=== PATIENT | female | born 1945 | race Caucasian/White ===

== ENCOUNTER 2016-04-21 12:52 | Outpatient (CLI) | payer MEDICARE, OTHER | END 2016-04-21 12:53 | disposition home or self-care (01) | DX: Z01.818 Encounter for other preprocedural examination (principal); Z01.812 Encounter for preprocedural laboratory examination; N39.0 Urinary tract infection, site not specified; R73.9 Hyperglycemia, unspecified ==

== ENCOUNTER 2016-10-01 08:59 | Outpatient (CLI) | payer MEDICARE, OTHER ==
[2016-10-01 11:00] LABS: BASOPHILS # (AUTO) 0.1 10^3/uL (0.0-0.1); BASOPHILS % (AUTO) 1.2 %; EOSINOPHILS # (AUTO) 0.2 10^3/uL (0.0-0.7); HCT - HEMATOCRIT 41.5 % (37.0-47.0); LYMPHOCYTES # (AUTO) 1.6 10^3/uL (1.5-3.5); LYMPHOCYTES % (AUTO) 36.8 %; MEAN CORPUSCULAR HEMOGLOBIN 28.1 pg (27.0-31.0); MEAN CORPUSCULAR HGB CONC 33.7 g/dL (32.0-36.0); MEAN CORPUSCULAR VOLUME 83.4 fL (81.0-99.0); MEAN PLATELET VOLUME 7.6 fL (7.9-10.8); MONOCYTES # (AUTO) 0.3 10^3/uL (0.0-1.0); MONOCYTES % (AUTO) 7.3 %; NEUTROPHILS # (AUTO) 2.1 10^3/uL (1.5-6.6); NEUTROPHILS % (AUTO) 49.7 %; NUCLEATED RED BLOOD CELLS AUTO 0.1 /100WBC; RED BLOOD COUNT 4.98 10^6/uL (4.20-5.40); RED CELL DISTRIBUTION WIDTH 15.6 % (12.0-15.0); UNCORRECTED WHITE BLOOD COUNT 4.3 x10^3/uL; WHITE BLOOD COUNT 4.3 x10^3/uL (4.8-10.8)
[2016-10-01 11:23] LABS: ALBUMIN/GLOBULIN RATIO 1.4 (1.0-2.2); BILIRUBIN,TOTAL 0.7 mg/dL (0.2-1.0); BUN - BLOOD UREA NITROGEN 21 mg/dL (6-20); CALCIUM 9.7 mg/dL (8.5-10.3); CARBON DIOXIDE - CO2 29 mmol/L (21-32); CHLORIDE 100 mmol/L (101-111); CHOL/HDL RATIO 3.7 (<4.4); CHOLESTEROL 210 mg/dL; GFR - MDRD 55 (>89); GLUCOSE 101 mg/dL (70-100); HDL CHOLESTEROL 57 mg/dL; LDL/HDL RATIO 2.2 (<4.4); POTASSIUM 3.8 mmol/L (3.5-5.0); SODIUM 137 mmol/L (135-145); TRIGLYCERIDES 146 mg/dL; VLDL CHOLESTEROL 29 mg/dL
== END 2016-10-01 09:00 | disposition home or self-care (01) ==
LOC: LAB.F 08:59
PROVIDERS: ATTEND Family Medicine
DX: I10 Essential (primary) hypertension (principal); E78.5 Hyperlipidemia, unspecified
CPT/HCPCS: 36415; 80053; 80061; 85025

== ENCOUNTER 2017-03-11 11:53 | Outpatient (CLI) | payer MEDICARE, OTHER ==
--- NOTE | 2017-03-12 17:36 | Mammography Report ---
DIGITAL SCREENING MAMMOGRAM: 03/11/2017 CLINICAL INDICATION: A 72-year-old with family history of breast cancer, history of benign biopsies for screening. COMPARISON: 12/2015, 11/2014, 10/2013, 09/2012, 08/2011, 06/2010. TECHNIQUE: Routine CC and MLO projections were obtained of the breasts. The breasts demonstrate fatty replacement bilaterally. Coarse and punctate, typically benign calcifi cations are present. No suspicious masses, clustered microcalcifications, or regions of architectura l distortion are identified. IMPRESSION: BENIGN FINDINGS. RECOMMENDATION: ROUTINE ANNUAL SCREENING UNLESS OTHERWISE CLINICALLY INDICATED. BIRADS CATEGORY: 2, BENIGN FINDINGS. STANDARD QUALIFYING STATEMENTS 1. This examination was reviewed with the aid of Computed-Aided Detection (CAD). 2. A negative or benign imaging report should not delay biopsy if clinically suspicious findings are present. Consider surgical consultation if warranted. More than 5% of cancers are not identified b y imaging. 3. Dense breasts may obscure an underlying neoplasm. JOB #: [id number] EXT JOB #:[id number]
== END 2017-03-11 11:54 | disposition home or self-care (01) ==
LOC: DI 11:53
PROVIDERS: ATTEND Family Medicine
DX: Z12.31 Encounter for screening mammogram for malignant neoplasm of breast (principal); Z80.3 Family history of malignant neoplasm of breast
CPT/HCPCS: 77067

== ENCOUNTER 2017-05-03 07:12 | Outpatient (CLI) | payer MEDICARE, OTHER ==
[2017-05-03 12:15] LABS: BASOPHILS % (AUTO) 0.7 %; EOSINOPHILS # (AUTO) 0.2 10^3/uL (0.0-0.7); EOSINOPHILS % (AUTO) 4.3 %; HGB - HEMOGLOBIN 14.6 g/dL (12.0-16.0); LYMPHOCYTES # (AUTO) 2.1 10^3/uL (1.5-3.5); LYMPHOCYTES % (AUTO) 41.1 %; MEAN CORPUSCULAR HEMOGLOBIN 28.9 pg (27.0-31.0); MEAN CORPUSCULAR HGB CONC 33.9 g/dL (32.0-36.0); MEAN CORPUSCULAR VOLUME 85.3 fL (81.0-99.0); MEAN PLATELET VOLUME 7.9 fL (7.9-10.8); MONOCYTES # (AUTO) 0.4 10^3/uL (0.0-1.0); MONOCYTES % (AUTO) 6.9 %; NEUTROPHILS # (AUTO) 2.4 10^3/uL (1.5-6.6); PLT - PLATELET COUNT 239 10^3/uL (130-450); RED BLOOD COUNT 5.04 10^6/uL (4.20-5.40); WHITE BLOOD COUNT 5.1 x10^3/uL (4.8-10.8)
[2017-05-03 12:37] LABS: ALBUMIN 4.1 g/dL (3.2-5.5); ALBUMIN/GLOBULIN RATIO 1.4 (1.0-2.2); ALKALINE PHOSPHATASE 66 IU/L (42-121); ALT ALANINE AMINOTRANSFERASE 19 IU/L (10-60); AST ASPARTATE AMINOTRANSFERASE 23 IU/L (10-42); BILIRUBIN,TOTAL 0.5 mg/dL (0.2-1.0); BUN - BLOOD UREA NITROGEN 17 mg/dL (6-20); CALCIUM 9.2 mg/dL (8.5-10.3); CARBON DIOXIDE - CO2 28 mmol/L (21-32); CHLORIDE 98 mmol/L (101-111); CHOL/HDL RATIO 3.9 (<4.4); CHOLESTEROL 236 mg/dL; GFR - MDRD 54 (>89); GLUCOSE 100 mg/dL (70-100); HDL CHOLESTEROL 61 mg/dL; LDL CHOLESTEROL,CALCULATED 135 mg/dL; LDL/HDL RATIO 2.2 (<4.4); SODIUM 135 mmol/L (135-145); TOTAL PROTEIN 7.1 g/dL (6.7-8.2); VLDL CHOLESTEROL 40 mg/dL
== END 2017-05-03 07:13 | disposition home or self-care (01) ==
LOC: LAB.F 07:12
PROVIDERS: ATTEND Physician Assistant Medical
DX: I10 Essential (primary) hypertension (principal); E78.5 Hyperlipidemia, unspecified; Z51.81 Encounter for therapeutic drug level monitoring
CPT/HCPCS: 36415; 80053; 80061; 83721; 84443; 85025

== ENCOUNTER 2018-02-14 23:26 | Outpatient (CLI) | payer MEDICARE, OTHER | END 2018-02-14 23:27 | disposition critical access hospital (66) | LOC: EMS 23:26 | PROVIDERS: ATTEND Surgery | DX: K92.1 Melena (principal) | CPT/HCPCS: A0425; A0427 ==

== ENCOUNTER 2018-02-14 23:51 | Observation (INO) | payer MEDICARE, OTHER ==
[2018-02-15] MEDS ORDERED: SODIUM CHLORIDE 0.9% 1,000 ML IV ONE (00:03)
--- NOTE | 2018-02-15 00:06 | ED Physician Documentation ---
History of Present Illness - Stated complaint Stated Complaint: GI BLEED - Chief complaint Chief Complaint: Abd Pain - Additonal information Additional information: hx from pt 73 female no blood thinners no prior abd surgery last colonoscopy 2012 was reportedly normal no bad food no travel she did take an aleve yesterday afternoon and her daily baby asa no EtOH earlier today had an episode of BRBPR then tonight numerous episodes of loose black and bloody stools no abd pain no [facility] called and pt was very orthostatic - with standing HR was 108 and BP was 82/66 Review of Systems Constitutional: denies: Fever, Chills Cardiac: denies: Chest pain / pressure Respiratory: denies: Dyspnea GI: reports: Bloody / black stool. denies: Abdominal Pain, Nausea, Vomiting Neurologic: denies: Generalized weakness Endocrine: denies: Easy bruising / bleeding Immunocompromised: denies: Immunocompromised PD PAST MEDICAL HISTORY - Past Medical History Cardiovascular: Hypertension Respiratory: None Endocrine/Autoimmune: None GI: None SCOOP FILLER: None : None HEENT: None Psych: None Musculoskeletal: None Derm: None - Past Surgical History Past Surgical History: Yes General: Colonoscopy Ortho: Knee replacement - Present Medications Home Medications: Ambulatory Orders Medication Instructions Recorded Confirmed Hydrochlorothiazide 25 mg PO DAILY 06/09/15 12/04/15 Metoprolol Succinate [Toprol Xl] 100 mg PO DAILY 06/09/15 12/04/15 Aspirin 162 mg PO DAILY 02/15/18 Calcium Carbonate/Vitamin D3 1 each PO 02/15/18 [Calcium 600 + Vit D 400 Tablet] Dozylamine Succinate 02/15/18 Potassium Chloride 20 meq PO DAILY 02/15/18 Vit C/Ascorb Sod/Multivit-Min 02/15/18 [Emergen-C 500 mg Chewable Tab] - Allergies Allergies/Adverse Reactions: Allergies Allergy/AdvReac Type Severity Reaction Status Date / Time No Known Drug Allergies Allergy Verified 02/14/18 23:56 - Social History Does the pt smoke?: No Smoking Status: Never smoker Does the pt drink ETOH?: Yes Does the pt have substance abuse?: No - Immunizations Immunizations are current?: Yes - POLST Patient has POLST: Yes PD ED PE NORMAL - Vitals Vital signs reviewed: Yes - Neck Neck: Supple, no meningeal sign - Cardiac Cardiac: RRR - Respiratory Respiratory: No respiratory distress - Abdomen Abdomen: Soft, Non tender - Rectal Rectal: Other (small flaccid hemorrhoid, no fissure, no mass on YOGESH, grossly bloody stool in rectal vault, pt had soaked through her underwear en route as well) - Derm Derm: Other (little pale) - Neuro Neuro: Alert and oriented X 3 Results - Vitals Vitals: Vital Signs - 24 hr 02/14/18 02/15/18 02/15/18 23:52 00:45 02:09 Temperature 36.3 C L Heart Rate 75 66 71 Respiratory 18 16 16 Rate Blood Pressure 149/86 H 121/57 L 127/61 O2 Saturation 98 96 96 Oxygen O2 Source Room air - Labs Labs: Laboratory Tests 02/15/18 02/15/18 02/15/18 00:20 00:20 00:20 WBC 7.8 RBC 4.02 L Hgb 12.0 Hct 34.5 L MCV 85.8 MCH 29.8 MCHC 34.8 RDW 14.4 Plt Count 226 MPV 7.2 L Neut # (Auto) 5.0 Lymph # (Auto) 2.2 [place] # (Auto) 0.4 Eos # (Auto) 0.2 Baso # (Auto) 0.0 Absolute Nucleated RBC 0.00 Nucleated RBC % 0.0 PT 14.3 H INR 1.3 H APTT 26.3 Sodium 136 Potassium 3.2 L Chloride 100 L Carbon Dioxide 26 Anion Gap 10.0 BUN 29 H Creatinine 0.8 Estimated GFR (MDRD) 70 L Glucose 131 H Calcium 8.7 Total Bilirubin 0.4 AST 19 ALT 16 Alkaline Phosphatase 53 Total Protein 6.2 L Albumin 3.7 Globulin 2.5 Albumin/Globulin Ratio 1.5 Lipase 42 Blood Type Antibody Screen 02/15/18 00:20 WBC RBC Hgb Hct MCV MCH MCHC RDW Plt Count MPV Neut # (Auto) Lymph # (Auto) [place] # (Auto) Eos # (Auto) Baso # (Auto) Absolute Nucleated RBC Nucleated RBC % PT INR APTT Sodium Potassium Chloride Carbon Dioxide Anion Gap BUN Creatinine Estimated GFR (MDRD) Glucose Calcium Total Bilirubin AST ALT Alkaline Phosphatase Total Protein Albumin Globulin Albumin/Globulin Ratio Lipase Blood Type A POSITIVE Antibody Screen NEGATIVE - Rads (name of study) CTAP with IV con Radiology: See rad report (no acute, diverticulosis) PD MEDICAL DECISION MAKING - ED course ED course: 1st H/H OK but pt very othostatic and with ongoing bleeding (bled through her clothes en route) may be upper as she took an aleve CT does not show any tumor or colitis d/w hospitalist Dr Zaldivar at 330 and he will admit pt for further eval and management for now he suggests observation status Departure - Departure Disposition: ED Place in Observation Clinical Impression: GI bleed Qualifiers: GI bleed type/associated pathology: unspecified gastrointestinal hemorrhage type Qualified Code(s): K92.2 - Gastrointestinal hemorrhage, unspecified Condition: Fair
[2018-02-15 00:30] LABS: BASOPHILS % (AUTO) 0.5 %; EOSINOPHILS # (AUTO) 0.2 10^3/uL (0.0-0.7); EOSINOPHILS % (AUTO) 2.5 %; LYMPHOCYTES # (AUTO) 2.2 10^3/uL (1.5-3.5); LYMPHOCYTES % (AUTO) 27.7 %; MEAN CORPUSCULAR HEMOGLOBIN 29.8 pg (27.0-31.0); MEAN CORPUSCULAR HGB CONC 34.8 g/dL (32.0-36.0); MEAN CORPUSCULAR VOLUME 85.8 fL (81.0-99.0); MEAN PLATELET VOLUME 7.2 fL (7.9-10.8); MONOCYTES # (AUTO) 0.4 10^3/uL (0.0-1.0); MONOCYTES % (AUTO) 5.7 %; NEUTROPHILS % (AUTO) 63.6 %; PLT - PLATELET COUNT 226 10^3/uL (130-450); RED BLOOD COUNT 4.02 10^6/uL (4.20-5.40); RED CELL DISTRIBUTION WIDTH 14.4 % (12.0-15.0); WHITE BLOOD COUNT 7.8 x10^3/uL (4.8-10.8)
[2018-02-15 00:37] LABS: INR 1.3 (0.8-1.2); PT - PROTHROMBIN TIME 14.3 secs (9.9-12.6)
[2018-02-15 00:44] LABS: ALBUMIN 3.7 g/dL (3.2-5.5); ALBUMIN/GLOBULIN RATIO 1.5 (1.0-2.2); BILIRUBIN,TOTAL 0.4 mg/dL (0.2-1.0); CALCIUM 8.7 mg/dL (8.5-10.3); CREATININE 0.8 mg/dL (0.4-1.0); TOTAL PROTEIN 6.2 g/dL (6.7-8.2)
[2018-02-15] MEDS ORDERED: IOPAMIDOL-300 100 ML VIAL ONE (01:11)
[2018-02-15] MEDS ORDERED: IOPAMIDOL-300 100 ML VIAL IVP ONE (02:35)
--- NOTE | 2018-02-15 03:02 | CT Report ---
Reason: GIB Procedure Date: 02/15/2018 Accession Number: [id number] / [id number] Procedure: CT - Abdomen/Pelvis W/ CPT Code: FULL RESULT: EXAM: CT ABDOMEN AND PELVIS EXAM DATE: 02/15/2018 12:00 AM. CLINICAL HISTORY: GIB. COMPARISONS: ABDOMEN/PELVIS W/O 12/04/2015 1:22 PM. TECHNIQUE: Routine helical CT imaging was performed through the abdomen and pelvis. IV contrast: ISOVUE 300 100mL. Enteric contrast: No. Reconstructions: Coronal and sagittal. In accordance with CT protocol optimization, one or more of the following dose reduction techniques were utilized for this exam: automated exposure control, adjustment of mA and/or KV based on patient size, or use of iterative reconstructive technique. FINDINGS: Lung Bases: Unremarkable. Liver: Normal. No masses. Gallbladder/Bile Ducts: Unremarkable. Spleen: Normal. Pancreas: Normal. Adrenal Glands: Normal. Kidneys: Normal. No masses or hydronephrosis. Peritoneal Cavity/Bowel: Normal. No free fluid, free air or adenopathy. Diverticulosis, without CT evidence of diverticulitis. No masses or acute inflammatory process. The appendix is well visualized and normal. Pelvic Organs: Normal. The bladder and visualized pelvic organs are within normal limits. Vasculature: No aneurysms or other significant abnormality. Bones: No significant abnormality. Other: None. IMPRESSION: Diverticulosis. No evidence of colonic mass. RADIA
[2018-02-15] MEDS ORDERED: MORPHINE 2 MG/ML CARPUJECT IVP PRN (03:49)
[2018-02-15] MEDS ORDERED: ONDANSETRON 4 MG/2 ML VIAL IVP PRN (03:49)
[2018-02-15] MEDS ORDERED: PROCHLORPERAZINE 10 MG/2 ML VIAL IVP PRN (03:49)
[2018-02-15] MEDS ORDERED: SODIUM CHLORIDE 0.9% 500 ML IV ONE (03:49)
[2018-02-15] MEDS ORDERED: PROMETHAZINE 25 MG/1 ML VIAL IM PRN (03:49)
[2018-02-15] MEDS ORDERED: ACETAMINOPHEN 325 MG TABLET PO PRN (03:49)
--- NOTE | 2018-02-15 03:55 | HISTORY & PHYSICAL EXAMINATION ---
Chief Complaint - Chief Complaint Chief Complaint: Bright red blood per rectum History of Present Illness - Admitted From Admitted From:: Emergency Department - History Obtained From Records Reviewed: Yes History obtained from: Patient Exam Limitations: None - History of Present Illness HPI Comment/Other: Patient is a 73-year-old female with a past medical history significant for hypertension, hyperlipidemia and osteoarthritis status post bilateral knee and hip replacements who presents to the emergency department with a chief complaint of bright red stool per rectum. The patient states that she was in her normal state of health earlier this morning and had just returned from the gym. She states that she has left shoulder bursitis and her left shoulder was acting up. She states that she took a pill of Aleve to help to relieve the pain. She states shortly after she took the Aleve she had a bowel movement where she had some blood. She states that this is not the first time that she has had some blood in her stools as she has had hemorrhoids ever since she had her last child. She states that she gets mild blood in her stools off and on and that is been going on for years. She was not too concerned so she went on with the rest of her day as she normally does. She states that later in the evening she had the urge to go to the bathroom again and had another bowel movement this time there was a significant amount of blood more than she has ever had before. She states that she had 3 subsequent bowel movements all of which were bloody with mixed dark and bright red blood. She states that when she got up from the toilet she felt very lightheaded and became very concerned and therefore called 911. On arrival of the paramedics they found that she was orthostatic with blood pressure down in the 80s with standing and heart rate in the 100s. The patient denies any abdominal pain. She denies any hematemesis, chest pain or shortness of air. Patient denies any headaches, blurred vision, runny nose, sore throat, nasal congestion, difficulty swallowing, orthopnea, PND, increased lower extremity swelling, nausea, vomiting, constipation, joint swelling, back pain, neck stiffness, recent unintentional weight loss, changes in her appetite, polyuria, polydipsia, skin rash, skin changes, night sweats, or any focal neurologic deficits. On presentation to the emergency department the patient was afebrile, mildly hypertensive but otherwise had normal vital signs. The patient underwent routine lab work which showed a hemoglobin of 12.0, INR of 1.3 and mild hypokalemia with a potassium of 3.2. The patient had a glucose of 131 and a mildly elevated BUN of 29 otherwise remainder of her lab tests were within normal limits. The patient underwent a CT of her abdomen and pelvis which revealed diverticulosis but no evidence of a colonic mass. The patient had another bloody bowel movement in the emergency department and was found to have undergarment that was soaked with bright red blood. On rectal examination in the emergency room physician found that she had grossly positive blood in her rectum. The patient did have hemorrhoids on examination but this did not appear to be a hemorrhoidal bleed. The patient was placed in observation for a GI bleed and will need to be seen by the surgeon in the morning for likely colonoscopy and EGD. History - Past Medical History Cardiovascular: reports: Hypertension, High cholesterol Respiratory: reports: None Endocrine/Autoimmune: reports: None GI: reports: None PETROLEUM PRODUCTION ENGINEER: reports: None : reports: None HEENT: reports: None Psych: reports: None Musculoskeletal: reports: Osteoarthritis Derm: reports: None MRSA Hx?: No - Past Surgical History General: reports: Colonoscopy Ortho: reports: Hip replacement, Knee replacement - Family & Social History Family History: Mother: , Cancer (Mother of lung cancer, daughter has had both Hodgkin's lymphoma and breast cancer.), Father: , Other family: Cancer, Diabetes, Type 2 (Grandmother had diabetes) Living arrangement: At home Living Situation: With spouse/s.o. Social History Notes: The patient lives in [place], [place]. She has been living there for 17 years with her . She has 2 children. She and her have been for 51 years. The patient is originally from [facility] but lived in [place], [place] for most of her life. 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 She is still very active and goes to the gym 3 times a week. She is completely independent. She states that she smoked very little in college and has never been a heavy smoker. She denies any heavy alcohol use or any illicit drug use. - POLST Patient has POLST: Yes POLST Status: Full Code Meds/Allgy - Home Medications Home Medications: Ambulatory Orders Medication Instructions Recorded Confirmed Hydrochlorothiazide 25 mg PO DAILY 06/09/15 12/04/15 Metoprolol Succinate [Toprol Xl] 100 mg PO DAILY 06/09/15 12/04/15 Aspirin 162 mg PO DAILY 02/15/18 Calcium Carbonate/Vitamin D3 1 each PO 02/15/18 [Calcium 600 + Vit D 400 Tablet] Dozylamine Succinate 02/15/18 Potassium Chloride 20 meq PO DAILY 02/15/18 Vit C/Ascorb Sod/Multivit-Min 02/15/18 [Emergen-C 500 mg Chewable Tab] - Allergies Allergies/Adverse Reactions: Allergies Allergy/AdvReac Type Severity Reaction Status Date / Time No Known Drug Allergies Allergy Verified 02/14/18 23:56 Review of Systems - Other Findings Other Findings: A comprehensive review of systems was performed the pertinent positives and n egatives are stated above in the HPI and the remainder of the review of systems is negative. Prior Level of Functionality: Fully independent with all her activities of daily living Exam - Vital Signs Reviewed Vital Signs: Yes Vital Signs: Vital Signs x48h Temp Pulse Resp BP Pulse Ox 02/15/18 03:40 72 15 111/50 L 99 02/15/18 02:09 71 16 127/61 96 02/15/18 00:45 66 16 121/57 L 96 02/14/18 23:52 36.3 C L 75 18 149/86 H 98 - Physical Exam General Appearance: positive: No acute distress, Alert Eyes Bilateral: positive: Normal inspection, PERRL, EOMI, No lid inflammation, Conjunctivae nml, No scleral icterus ENT: positive: ENT inspection nml, Pharynx nml, Dry mucous membranes. negative: Purulent nasal drainage, Pharyngeal erythema, Oral lesions Neck: positive: Nml inspection, Thyroid nml, No JVD, Trachea midline. negative: Thyromegaly, Lymphadenopathy (R), Lymphadenopathy (L), Carotid bruit, Tracheal deviation Respiratory: positive: Chest non-tender, No respiratory distress, Breath sounds nml. negative: Wheezes, Rales, Rhonchi Cardiovascular: positive: Regular rate & rhythm, No murmur, No gallop Peripheral Pulses: positive: 2+ Abdomen: positive: Non-tender, No organomegaly, Nml bowel sounds, No distention. negative: Guarding, Rebound Rectal: positive: Bloody stool Back: positive: Nml inspection. negative: CVA tenderness (R), CVA tenderness (L) Skin: positive: Color nml, No rash, Warm, Dry. negative: Cyanosis, Diaphoresis, Pallor Extremities: positive: Non-tender, Full ROM, Nml appearance, No pedal edema Neurologic/Psychiatric: positive: Oriented x3, CN's nml (2-12), Motor nml, Sensation nml, Mood/affect nml Conclusion/Plan - Problem List (1) GI bleed Conclusion/Plan: Patient presented to the emergency department with bright red blood per rectum. The patient has had several episodes of black and bloody stools throughout the day today. She denies any abdominal pain, nausea or hematemesis. The patient has no history of GI bleeding. She had been using Aleve the last 2 days for arthritic pain. She takes a daily aspirin. The patient's bleeding likely appears to be a lower GI bleed however she could be having a brisk upper GI bleed with her history of NSAID and aspirin use. On presentation the patient's hemoglobin is stable but she does have orthostatic hypotension. The patient did have diverticulosis on CT of her abdomen but no mass. This appears likely to be a diverticular bleed. Plan: 2 large-bore IVs H&H every 6 Transfuse if hemoglobin less than 7 or acute drop in hemoglobin with ongoing bleeding or hemodynamic compromise IV fluids IV Protonix twice daily Surgery consult for EGD and colonoscopy Hold aspirin and all NSAIDs Qualifiers: GI bleed type/associated pathology: unspecified gastrointestinal hemorrhage t ype Qualified Code(s): K92.2 - Gastrointestinal hemorrhage, unspecified (2) Hypokalemia Conclusion/Plan: Patient has hypokalemia on presentation with a potassium of 3.2. The patient appears to be dry on examination likely due to her ongoing GI bleeding. The patient will be given potassium replacement and IV fluids while she is hospitalized. We will continue to monitor her potassium daily. (3) Hypertension Conclusion/Plan: Patient is a history of hypertension but presents to the emergency department with a GI bleed and has orthostatic hypotension. Given the patient's ongoing bleed and orthostatic hypotension we will hold all her antihypertensive medications. We will continue to monitor the patient's blood pressure and restart blood pressure medications if the patient does become hypertensive. Qualifiers: Hypertension type: essential hypertension Qualified Code(s): I10 - Essential (primary) hypertension (4) Osteoarthritis Conclusion/Plan: Patient is a history of arthritis and takes aspirin and Aleve at home for her arthritis. Given that she is having a GI bleed we will hold her aspirin and suggest she does not use Aleve. While she is hospitalized she will be given Ty lenol for pain. If the pain becomes excruciating she can get IV morphine but we will not use any aspirin or NSAIDs. Qualifiers: Osteoarthritis location: unspecified site (5) Hyperlipidemia Conclusion/Plan: The patient has a history of hyperlipidemia but recently has been taken off of her statin by her primary care physician. While she is hospitalized she will not be placed on a statin. Qualifiers: Hyperlipidemia type: unspecified Qualified Code(s): E78.5 - Hyperlipidemia, unspecified - Lab Results Lab results reviewed: Yes Fish Bones: 02/15/18 00:20 02/15/18 00:20 Other Lab Results: Laboratory Results WBC 7.8 x10^3/uL (4.8-10.8) 02/15/18 00:20 RBC 4.02 10^6/uL (4.20-5.40) L 02/15/18 00:20 Hgb 12.0 g/dL (12.0-16.0) 02/15/18 00:20 Hct 34.5 % (37.0-47.0) L 02/15/18 00:20 MCV 85.8 fL (81.0-99.0) 02/15/18 00:20 MCH 29.8 pg (27.0-31.0) 02/15/18 00:20 MCHC 34.8 g/dL (32.0-36.0) 02/15/18 00:20 RDW 14.4 % (12.0-15.0) 02/15/18 00:20 Plt Count 226 10^3/uL (130-450) 02/15/18 00:20 MPV 7.2 fL (7.9-10.8) L 02/15/18 00:20 Neut # (Auto) 5.0 10^3/uL (1.5-6.6) 02/15/18 00:20 Lymph # (Auto) 2.2 10^3/uL (1.5-3.5) 02/15/18 00:20 [place] # (Auto) 0.4 10^3/uL (0.0-1.0) 02/15/18 00:20 Eos # (Auto) 0.2 10^3/uL (0.0-0.7) 02/15/18 00:20 Baso # (Auto) 0.0 10^3/uL (0.0-0.1) 02/15/18 00:20 Absolute Nucleated RBC 0.00 x10^3/uL 02/15/18 00:20 Nucleated RBC % 0.0 /100WBC 02/15/18 00:20 PT 14.3 secs (9.9-12.6) H 02/15/18 00:20 INR 1.3 (0.8-1.2) H 02/15/18 00:20 APTT 26.3 secs (24.9-33.3) 02/15/18 00:20 Sodium 136 mmol/L (135-145) 02/15/18 00:20 Potassium 3.2 mmol/L (3.5-5.0) L 02/15/18 00:20 Chloride 100 mmol/L (101-111) L 02/15/18 00:20 Carbon Dioxide 26 mmol/L (21-32) 02/15/18 00:20 Anion Gap 10.0 (6-13) 02/15/18 00:20 BUN 29 mg/dL (6-20) H 02/15/18 00:20 Creatinine 0.8 mg/dL (0.4-1.0) 02/15/18 00:20 Estimated GFR (MDRD) 70 (>89) L 02/15/18 00:20 Glucose 131 mg/dL (70-100) H 02/15/18 00:20 Calcium 8.7 mg/dL (8.5-10.3) 02/15/18 00:20 Total Bilirubin 0.4 mg/dL (0.2-1.0) 02/15/18 00:20 AST 19 IU/L (10-42) 02/15/18 00:20 ALT 16 IU/L (10-60) 02/15/18 00:20 Alkaline Phosphatase 53 IU/L (42-121) 02/15/18 00:20 Total Protein 6.2 g/dL (6.7-8.2) L 02/15/18 00:20 Albumin 3.7 g/dL (3.2-5.5) 02/15/18 00:20 Globulin 2.5 g/dL (2.1-4.2) 02/15/18 00:20 Albumin/Globulin Ratio 1.5 (1.0-2.2) 02/15/18 00:20 Lipase 42 U/L (22-51) 02/15/18 00:20 Blood Type A POSITIVE 02/15/18 00:20 Antibody Screen NEGATIVE 02/15/18 00:20 - Diagnostic Imaging Results Diagnostic Imaging Results: positive: Final report reviewed Diagnostic Imaging Results Comments: CT abdomen/pelvis Impression: Diverticulosis. No evidence of colonic mass. Core Measures - Anticipated LOS I expect patient to be DC'd or transferred within 96 hours.: Yes - DVT/VTE - Prophylaxis VTE/DVT Device ordered at admit?: Yes
[2018-02-15] MEDS ORDERED: SODIUM CHLORIDE FLUSH 0.9% 10 ML SYRINGE ONE (05:18)
[2018-02-15 05:54] LABS: BASOPHILS % (AUTO) 0.8 %; EOSINOPHILS # (AUTO) 0.1 10^3/uL (0.0-0.7); EOSINOPHILS % (AUTO) 1.4 %; HGB - HEMOGLOBIN 10.9 g/dL (12.0-16.0); LYMPHOCYTES # (AUTO) 1.8 10^3/uL (1.5-3.5); LYMPHOCYTES % (AUTO) 29.4 %; MEAN CORPUSCULAR HEMOGLOBIN 29.5 pg (27.0-31.0); MEAN CORPUSCULAR HGB CONC 34.1 g/dL (32.0-36.0); MEAN CORPUSCULAR VOLUME 86.6 fL (81.0-99.0); MEAN PLATELET VOLUME 7.4 fL (7.9-10.8); MONOCYTES # (AUTO) 0.3 10^3/uL (0.0-1.0); MONOCYTES % (AUTO) 4.8 %; NEUTROPHILS # (AUTO) 3.9 10^3/uL (1.5-6.6); NEUTROPHILS % (AUTO) 63.6 %; PLT - PLATELET COUNT 219 10^3/uL (130-450); RED BLOOD COUNT 3.69 10^6/uL (4.20-5.40); RED CELL DISTRIBUTION WIDTH 14.3 % (12.0-15.0); WHITE BLOOD COUNT 6.2 x10^3/uL (4.8-10.8)
[2018-02-15] MEDS: NS W/20 MEQ KCL 1,000 ML IV SCH ×3 (05:55→17:41)
[2018-02-15] MEDS: SODIUM CHLORIDE FLUSH 0.9% 10 ML SYRINGE IVP PRN (05:55)
[2018-02-15 06:08] LABS: ALBUMIN 3.4 g/dL (3.2-5.5); ALBUMIN/GLOBULIN RATIO 1.5 (1.0-2.2); BILIRUBIN,TOTAL 0.6 mg/dL (0.2-1.0); CALCIUM 8.4 mg/dL (8.5-10.3); CREATININE 0.8 mg/dL (0.4-1.0); TOTAL PROTEIN 5.7 g/dL (6.7-8.2)
[2018-02-15] MEDS: POLYETHYLENE GLYCOL 3350 17 GM PACKET PO SCH (07:30)
[2018-02-15] MEDS: SODIUM CHLORIDE FLUSH 0.9% 10 ML SYRINGE IVP SCH ×2 (07:30→17:40)
[2018-02-15] MEDS: PANTOPRAZOLE 40 MG VIAL IVP SCH ×2 (09:27→21:18)
[2018-02-15] MEDS ORDERED: METOPROLOL SUCCINATE 50 MG TABLET PO SCH ×2 (10:00→13:00)
[2018-02-15 11:02] LABS: BASOPHILS % (AUTO) 0.8 %; EOSINOPHILS # (AUTO) 0.1 10^3/uL (0.0-0.7); EOSINOPHILS % (AUTO) 1.9 %; HGB - HEMOGLOBIN 10.7 g/dL (12.0-16.0); LYMPHOCYTES # (AUTO) 1.3 10^3/uL (1.5-3.5); MEAN CORPUSCULAR HEMOGLOBIN 29.5 pg (27.0-31.0); MEAN CORPUSCULAR HGB CONC 34.1 g/dL (32.0-36.0); MEAN CORPUSCULAR VOLUME 86.4 fL (81.0-99.0); MEAN PLATELET VOLUME 7.4 fL (7.9-10.8); MONOCYTES # (AUTO) 0.3 10^3/uL (0.0-1.0); MONOCYTES % (AUTO) 6.2 %; NEUTROPHILS # (AUTO) 3.1 10^3/uL (1.5-6.6); NEUTROPHILS % (AUTO) 64.1 %; PLT - PLATELET COUNT 212 10^3/uL (130-450); RED BLOOD COUNT 3.65 10^6/uL (4.20-5.40); RED CELL DISTRIBUTION WIDTH 14.8 % (12.0-15.0); WHITE BLOOD COUNT 4.8 x10^3/uL (4.8-10.8)
--- NOTE | 2018-02-15 16:44 | CONSULTATION NOTE ---
Referring Provider Name of Referring Provider:: Dr. Ramon Consult Date: 02/15/18 Chief Complaint - Chief Complaint Chief Complaint: rectal bleeding History of Present Illness - Admitted From Admitted From:: ER - History Obtained From Records Reviewed: yes History obtained from: pt, records Exam Limitations: none - History of Present Illness HPI Comment/Other: 73 yo female in her usual state of good health until yesterday afternoon when she noted the onset of passage of painless BRBPR. She had 3 or 4 episodes over the next several hours, the last of which was associated with dizziness and near syncope, prompting her to call 911 and come to the ER last night for evaluation. She had one more large BRBPR episode in the ER last night but none since admis becca. No prior similar episodes. No UGI sx such as heartburn, dysphagia, food intolerance, abd pain. No melena, wt changes. She has taken several doses of Aleve over the past few days for joint pain. She also takes daily aspirin therapy. No hx PUD. No alcohol, tobacco. She has a PH of colon polyps and her last colon in 2012 was negative by report. She reports a neg FH CRC although her father had colon polyps removed in the past. She has remained hemodynamically stable since admission. History - Past Medical History Cardiovascular: reports: Hypertension, High cholesterol Respiratory: reports: None Endocrine/Autoimmune: reports: None GI: reports: None WOMEN'S MINISTRY DIRECTOR: reports: None : reports: None HEENT: reports: None Psych: reports: None Musculoskeletal: reports: Osteoarthritis Derm: reports: None MRSA Hx?: No - Past Surgical History General: reports: Colonoscopy Ortho: reports: Hip replacement, Knee replacement - Family & Social History Family History: Mother: , Cancer (Mother of lung cancer, daughter has had both Hodgkin's lymphoma and breast cancer.), Father: , Other family: Cancer, Diabetes, Type 2 (Grandmother had diabetes) Family History Comment/Other: Neg for GI tumors Living arrangement: At home Living Situation: With spouse/s.o. Social History Notes: The patient lives in [place], [place]. She has been living there for 17 years with her . She has 2 children. She and her have been for 51 years. The patient is originally from [facility] but lived in [place], [place] for most of her life. 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 She is still very active and goes to the gym 3 times a week. She is completely independent. She states that she smoked very little in college and has never been a heavy smoker. She denies any heavy alcohol use or any illicit drug use. - Substance History Use: Uses substance without health or social issues: NONE Dependence: Experiences withdrawal or developed tolerances: NONE - POLST Patient has POLST: Yes POLST Status: Full Code Meds/Allgy - Home Medications Home Medications: Ambulatory Orders Medication Instructions Recorded Confirmed Hydrochlorothiazide 25 mg PO DAILY 06/09/15 02/15/18 Metoprolol Succinate [Toprol Xl] 100 mg PO DAILY 06/09/15 02/15/18 Ascorbic Acid 500 mg PO DAILY 02/15/18 02/15/18 Aspirin 162 mg PO DAILY 02/15/18 02/15/18 Calcium Carbonate/Vitamin D3 1 each PO DAILY 02/15/18 02/15/18 [Calcium 600 + Vit D 400 Tablet] Doxylamine Succinate [Wal-Duncan] 25 mg PO QPM 02/15/18 02/15/18 Latanoprost 0.005% Ophth Drops 1 drops EACHEYE QPM 02/15/18 02/15/18 [Xalatan Ophth Drops] Potassium Chloride 20 meq PO QPM 02/15/18 02/15/18 Timolol 0.25% Ophth Drops 1 drops LEFTEYE DAILY 02/15/18 02/15/18 [Timoptic 0.25% Ophth Drops] - Allergies Allergies/Adverse Reactions: Allergies Allergy/AdvReac Type Severity Reaction Status Date / Time No Known Drug Allergies Allergy Verified 02/14/18 23:56 Review of Systems - Constitutional Constitutional: denies: Fatigue, Fever, Chills, Poor appetite, Weight gain, Weight loss - Gastrointestinal Gastrointestinal: reports: Change in bowel habits, Rectal bleeding, Bloody stools. denies: Abdominal pain, Abdominal distention, Constipation, Diarrhea, Black stools, Nausea, Vomiting, Bile emesis, Henrique blood emesis, Coffee grounds emesis, Reflux/heartburn, Bloating - Hematologic/Lymphatic Hematologic/Lymphatic: denies: Bleeding tendencies - All Other Systems All Other Systems: reports: Reviewed and negative Exam - Vital Signs Reviewed Vital Signs: Yes Vital Signs: Vital Signs x48h Temp Pulse Resp BP Pulse Ox 02/15/18 16:30 36.5 C 74 18 127/61 97 02/15/18 13:00 74 117/98 H 02/15/18 11:25 36.5 C 69 16 150/70 H 99 - Physical Exam General Appearance: positive: No acute distress, Alert Eyes Bilateral: positive: Normal inspection, Conjunctivae nml, No scleral icterus ENT: positive: ENT inspection nml, Pharynx nml, No signs of dehydration Neck: positive: Nml inspection Respiratory: positive: Chest non-tender, No respiratory distress, Breath sounds nml. negative: Wheezes, Rales, Rhonchi Cardiovascular: positive: Regular rate & rhythm, No murmur, No gallop Abdomen: positive: Non-tender, No organomegaly, Nml bowel sounds, No distention. negative: Hepatomegaly, Splenomegaly, Mass Extremities: positive: No pedal edema. negative: Fareed's sign/cords Neurologic/Psychiatric: positive: Oriented x3 Conclusion/Plan - Diagnosis Diagnosis: GI bleed; most likely lower; ddx includes angiodysplasia, tics, CRC (doubt), colitis (doubt), UGI source (doubt) - Plan Plan: Agree with present management; bowel prep today for EGD/colon in AM tomorrow. PAR conf with pt. Thanks, - Lab Results Lab results reviewed: Yes Fish Bones: 02/15/18 10:50 02/15/18 05:44 - Diagnostic Imaging Results Diagnostic Imaging Results: positive: Final report reviewed, Read independently Diagnostic Imaging Results Comments: CT abd/pelvis showed colonic tics but no obvious source of gi bleeding.
[2018-02-15 16:57] LABS: EOSINOPHILS # (AUTO) 0.1 10^3/uL (0.0-0.7); EOSINOPHILS % (AUTO) 1.9 %; HGB - HEMOGLOBIN 10.4 g/dL (12.0-16.0); LYMPHOCYTES # (AUTO) 1.3 10^3/uL (1.5-3.5); MEAN CORPUSCULAR HGB CONC 33.1 g/dL (32.0-36.0); MEAN CORPUSCULAR VOLUME 87.7 fL (81.0-99.0); MEAN PLATELET VOLUME 7.5 fL (7.9-10.8); MONOCYTES # (AUTO) 0.3 10^3/uL (0.0-1.0); NEUTROPHILS # (AUTO) 2.7 10^3/uL (1.5-6.6); NEUTROPHILS % (AUTO) 61.1 %; PLT - PLATELET COUNT 216 10^3/uL (130-450); RED BLOOD COUNT 3.58 10^6/uL (4.20-5.40); RED CELL DISTRIBUTION WIDTH 14.6 % (12.0-15.0); WHITE BLOOD COUNT 4.4 x10^3/uL (4.8-10.8)
[2018-02-15] MEDS: SODIUM/POTASSIUM/MAG SULFATES 354 ML PREP KIT PO SCH (17:40)
[2018-02-15] MEDS ORDERED: LATANOPROST 0.005% OPHTH DROPS EACHEYE SCH (21:00)
[2018-02-15 22:59] LABS: EOSINOPHILS # (AUTO) 0.2 10^3/uL (0.0-0.7); EOSINOPHILS % (AUTO) 3.1 %; LYMPHOCYTES # (AUTO) 1.7 10^3/uL (1.5-3.5); LYMPHOCYTES % (AUTO) 34.9 %; MEAN CORPUSCULAR HEMOGLOBIN 29.3 pg (27.0-31.0); MEAN CORPUSCULAR HGB CONC 33.1 g/dL (32.0-36.0); MEAN CORPUSCULAR VOLUME 88.8 fL (81.0-99.0); MEAN PLATELET VOLUME 7.4 fL (7.9-10.8); MONOCYTES # (AUTO) 0.4 10^3/uL (0.0-1.0); MONOCYTES % (AUTO) 7.2 %; NEUTROPHILS # (AUTO) 2.7 10^3/uL (1.5-6.6); NEUTROPHILS % (AUTO) 53.8 %; PLT - PLATELET COUNT 193 10^3/uL (130-450); RED BLOOD COUNT 3.75 10^6/uL (4.20-5.40); RED CELL DISTRIBUTION WIDTH 14.7 % (12.0-15.0)
[2018-02-16] MEDS: NS W/20 MEQ KCL 1,000 ML IV SCH (02:46)
[2018-02-16] MEDS: SODIUM CHLORIDE FLUSH 0.9% 10 ML SYRINGE IVP SCH ×2 (02:47→09:24)
[2018-02-16] MEDS: SODIUM/POTASSIUM/MAG SULFATES 354 ML PREP KIT PO SCH (05:07)
[2018-02-16] MEDS: SODIUM CHLORIDE FLUSH 0.9% 10 ML SYRINGE IVP PRN ×3 (05:18→10:30)
[2018-02-16] MEDS ORDERED: LIDO GARGLE 30 ML BOTTLE ONE (07:12)
--- NOTE | 2018-02-16 07:21 | PROVIDER PROGRESS NOTE ---
Assessment/Plan - Problem List (1) GI bleed Qualifiers: GI bleed type/associated pathology: unspecified gastrointestinal hemorrhage type Qualified Code(s): K92.2 - Gastrointestinal hemorrhage, unspecified Assessment/Plan: Clinically resolving, most likely lower in nature. Plan: EGD/colon this am. - Current Meds Current Meds: Current Medications Generic Name Dose Route Start Last Admin Trade Name Freq PRN Reason Stop Dose Admin Potassium Chloride/Sodium Chloride 1,000 mls @ 100 mls/hr 02/15/18 04:00 02/16/18 02:46 Normal Saline 0.9% W/20 Meq Kcl IV 100 mls/hr .Q10H ELIUD Administration Latanoprost 1 drops 02/15/18 21:00 02/15/18 21:17 Xalatan Ophth Drops EACHEYE 1 drops QPM ELIUD Administration Ondansetron HCl 4 mg 02/15/18 03:49 02/16/18 05:17 Zofran Inj IVP 4 mg Q6HR PRN Administration Nausea / Vomiting Pantoprazole Sodium 40 mg 02/15/18 09:00 02/15/18 21:18 Protonix IVP 40 mg BID ELIUD Administration Polyethylene Glycol 17 gm 02/15/18 09:00 02/15/18 07:30 Miralax PO Not Given DAILY ELIUD Sodium Chloride 10 ml 02/15/18 03:49 02/16/18 05:18 Normal Saline Flush 0.9% IVP 10 ml PRN PRN Administration NEEDED PER PROVIDER ORDERS Sodium Chloride 10 ml 02/15/18 09:00 02/16/18 02:47 Normal Saline Flush 0.9% IVP Not Given 0100,0900,1700 ELIUD - Lab Result Lab results reviewed: Yes Fish Bone Diagrams: 02/15/18 22:48 02/15/18 05:44 - Additional Planning Condition/Complexity: Improved My Orders: My Active Orders 02/16/18 00:01 NPO except Meds at Midnight [DIET] Plan Discussed with:: Patient Time Spent: 15-30 minutes Subjective - Subjective Patient Reports: Resting Comfortably, No Complaints, Other (No bm's with blood until started prep last night, then initial 2 stools were bloody, the rest have been clear, non bloody.) Objective Vital Signs: Vital Signs - 24 hr 02/15/18 02/15/1802/15/18 11:25 13:00 16:30 Temperature 36.5 C 36.5 C Heart Rate [ 69 74 74 Brachial] Respiratory 16 18 Rate Blood Pressure 150/70 H 117/98 H 127/61 [Right Brachial artery] O2 Saturation 99 97 02/15/18 02/16/18 02/16/18 21:00 00:01 05:00 Temperature 36.5 C 36.4 C L 36.4 C L Heart Rate [ 69 73 76 Brachial] Respiratory 18 18 18 Rate Blood Pressure 134/61 H 144/63 H 162/78 H [Right Brachial artery] O2 Saturation 99 100 100 Oxygen O2 Source Room air I&O (Last 24 Hrs): Intake and Output Totals x24h 02/14/18 02/15/18 02/16/18 23:59 23:59 23:59 Intake Total 3978.333 876.667 Output Total 2 Balance 3978.333 874.667 General: Alert, Oriented x3, Cooperative Abdomen: Soft, No tenderness, No hepatospenomegaly, No masses - Results Results: Laboratory Results WBC 5.0 x10^3/uL (4.8-10.8) 02/15/18 22:48 RBC 3.75 10^6/uL (4.20-5.40) L 02/15/18 22:48 Hgb 11.0 g/dL (12.0-16.0) L 02/15/18 22:48 Hct 33.3 % (37.0-47.0) L 02/15/18 22:48 MCV 88.8 fL (81.0-99.0) 02/15/18 22:48 MCH 29.3 pg (27.0-31.0) 02/15/18 22:48 MCHC 33.1 g/dL (32.0-36.0) 02/15/18 22:48 RDW 14.7 % (12.0-15.0) 02/15/18 22:48 Plt Count 193 10^3/uL (130-450) 02/15/18 22:48 MPV 7.4 fL (7.9-10.8) L 02/15/18 22:48 Neut # (Auto) 2.7 10^3/uL (1.5-6.6) 02/15/18 22:48 Lymph # (Auto) 1.7 10^3/uL (1.5-3.5) 02/15/18 22:48 Archer # (Auto) 0.4 10^3/uL (0.0-1.0) 02/15/18 22:48 Eos # (Auto) 0.2 10^3/uL (0.0-0.7) 02/15/18 22:48 Baso # (Auto) 0.0 10^3/uL (0.0-0.1) 02/15/18 22:48 Absolute Nucleated RBC 0.00 x10^3/uL 02/15/18 22:48 Nucleated RBC % 0.1 /100WBC 02/15/18 22:48 PT 14.3 secs (9.9-12.6) H 02/15/18 00:20 INR 1.3 (0.8-1.2) H 02/15/18 00:20 APTT 26.3 secs (24.9-33.3) 02/15/18 00:20 Sodium 135 mmol/L (135-145) 02/15/18 05:44 Potassium 3.7 mmol/L (3.5-5.0) 02/15/18 05:44 Chloride 102 mmol/L (101-111) 02/15/18 05:44 Carbon Dioxide 26 mmol/L (21-32) 02/15/18 05:44 Anion Gap 7.0 (6-13) 02/15/18 05:44 BUN 24 mg/dL (6-20) H 02/15/18 05:44 Creatinine 0.8 mg/dL (0.4-1.0) 02/15/18 05:44 Estimated GFR (MDRD) 70 (>89) L 02/15/18 05:44 Glucose 114 mg/dL (70-100) H 02/15/18 05:44 Calcium 8.4 mg/dL (8.5-10.3) L 02/15/18 05:44 Total Bilirubin 0.6 mg/dL (0.2-1.0) 02/15/18 05:44 AST 17 IU/L (10-42) 02/15/18 05:44 ALT 16 IU/L (10-60) 02/15/18 05:44 Alkaline Phosphatase 45 IU/L (42-121) 02/15/18 05:44 Total Protein 5.7 g/dL (6.7-8.2) L 02/15/18 05:44 Albumin 3.4 g/dL (3.2-5.5) 02/15/18 05:44 Globulin 2.3 g/dL (2.1-4.2) 02/15/18 05:44 Albumin/Globulin Ratio 1.5 (1.0-2.2) 02/15/18 05:44 Lipase 42 U/L (22-51) 02/15/18 00:20 Blood Type A POSITIVE 02/15/18 00:20 Blood Type Recheck A POSITIVE 02/15/18 10:50 Antibody Screen NEGATIVE 02/15/18 00:20 ABX Reporting Has patient been on IV antibiotics over the past 48 hours?: No
[2018-02-16] MEDS ORDERED: LACTATED RINGERS 1,000 ML IV ONE (07:25)
[2018-02-16] MEDS ORDERED: MIDAZOLAM 2 MG/2 ML VIAL IVP ONE (07:30)
[2018-02-16] MEDS ORDERED: fentaNYL 100 MCG/2 ML VIAL IVP ONE (07:30)
--- NOTE | 2018-02-16 08:51 | Discharge Plan ---
Discharge Plan Disposition: 01 Home, Self Care Condition: Good Prescriptions: Wheat Dextrin [Benefiber] 1 each PO DAILY #30 packet Diet: Soft (low-residue, daily Benefiber or metamucil.) Activity Restrictions: Activity as Tolerated Shower Restrictions: No Driving Restrictions: No Weight Bearing: Full Weight Instruction Topics: Diet High Fiber Additional Instructions or Follow Up instructions: You were admitted overnight for GI bleeding. You underwent a EGD and colonoscopy and final results are still pending, but preliminary findings are that of diverticulosis. I have given you a copy of reading materials on this disease to keep you healthy. I have sent a prescription for benefiber to the pharmacy, but met amucil will also be ok, ALL of which are over the counter. Please see your PCP within one week. Follow up with GI as recommended. No Smoking: If you smoke, Please STOP! Call for help.
[2018-02-16] MEDS ORDERED: CHOLECALCIFEROL 400 UNIT TABLET PO SCH (09:00)
[2018-02-16] MEDS ORDERED: ASCORBIC ACID CHEW 500 MG TABLET PO SCH (09:00)
[2018-02-16] MEDS ORDERED: CALCIUM CARBONATE CHEW 500 MG TABLET PO SCH (09:00)
[2018-02-16] MEDS ORDERED: hydroCHLOROthiazide 25 MG TABLET PO SCH (09:00)
[2018-02-16] MEDS ORDERED: TIMOLOL 0.25% OPHTH DROPS LEFTEYE SCH (09:00)
[2018-02-16] MEDS ORDERED: METOPROLOL TARTRATE 50 MG TABLET PO SCH (09:00)
[2018-02-16] MEDS ORDERED: ASPIRIN CHEW 81 MG TABLET PO SCH (09:00)
--- NOTE | 2018-02-16 09:02 | DISCHARGE SUMMARY ---
"Discharge Summary Admit Date: 02/15/18 Discharge Date: 02/16/18 Discharging Provider: DOE Yu Primary Care Provider: Lilia Hogue Code Status: Attempt Resuscitation Condition at Discharge: Good Discharge Disposition: 01 Home, Self Care - DIAGNOSES Admission Diagnoses: GI bleed (K92.2) Hypokalemia (E87.6) Hypertension (I10) Osteoarthritis (M19.90) Hyperlipidemia (E78.5) Discharge Diagnoses with Status of Each Condition: GI bleed (K92.2) resolved, stable. Diverticula, colon (K57.30) new on this admission, stable. Daily bene fiber/metamucil. Anemia due to acute blood loss (D62) stable, no need for transfusion. Hypokalemia (E87.6) resolved. Hypertension (I10) chronic, stable. Osteoarthritis (M19.90) chronic, stable. Hyperlipidemia (E78.5) chronic, stable. - HPI History of Present Illness: HPI per Dr. Zaldivar: Patient is a 73-year-old female with a past medical history significant for hypertension, hyperlipidemia and osteoarthritis status post bilateral knee and hip replacements who presents to the emergency department with a chief complaint of bright red stool per rectum. The patient states that she was in her normal state of health earlier this morning and had just returned from the gym. She states that she has left shoulder bursitis and her left shoulder was acting up. She states that she took a pill of Aleve to help to relieve the pain. She states shortly after she took the Aleve she had a bowel movement where she had some blood. She states that this is not the first time that she has had some blood in her stools as she has had hemorrhoids ever since she had her last child. She states that she gets mild blood in her stools off and on and that is been going on for years. She was not too concerned so she went on with the rest of her day as she normally does. She states that later in the evening she had the urge to go to the bathroom again and had another bowel movement this time there was a significant amount of blood more than she has ever had before. She states that she had 3 subsequent bowel movements all of which were bloody with m ixed dark and bright red blood. She states that when she got up from the toilet she felt very lightheaded and became very concerned and therefore called 911. On arrival of the paramedics they found that she was orthostatic with blood pressure down in the 80s with standing and heart rate in the 100s. The patient denies any abdominal pain. She denies any hematemesis, chest pain or shortness of air. Patient denies any headaches, blurred vision, runny nose, sore throat, nasal congestion, difficulty swallowing, orthopnea, PND, increased lower extremity swelling, nausea, vomiting, constipation, joint swelling, back pain, neck stiffness, recent unintentional weight loss, changes in her appetite, polyuria, polydipsia, skin rash, skin changes, night sweats, or any focal neurologic deficits. On presentation to the emergency department the patient was afebrile, mildly hypertensive but otherwise had normal vital signs. The patient underwent routine lab work which showed a hemoglobin of 12.0, INR of 1.3 and mild hypokalemia with a potassium of 3.2. The patient had a glucose of 131 and a mil dly elevated BUN of 29 otherwise remainder of her lab tests were within normal limits. The patient underwent a CT of her abdomen and pelvis which revealed diverticulosis but no evidence of a colonic mass. The patient had another bloody bowel movement in the emergency department and was found to have undergarment that was soaked with bright red blood. On rectal examination in the emergency room physician found that she had grossly positive blood in her rectum. The patient did have hemorrhoids on examination but this did not appear to be a hemorrhoidal bleed. The patient was placed in observation for a GI bleed and will need to be seen by the surgeon in the morning for likely colonoscopy and EGD. - CONSULTS | PROCEDURES Consultations: General surgery/GI, Dr. Ryan Roger Procedures: EGD/colonoscopy - HOSPITAL COURSE Hospital Course: The patient was admitted with GI bleeding that totaled about 4-5 episodes, she was symptomatic and her H/H trended downward from 12.0/34.5 to 10.4/31.4 and prior to discharge had stabilized at 11.0/33.3. She was slightly nauseated after her first meal following the EGD/colonoscopy and was given an anti-emetic. Preliminary findings from her procedures are diverticulosis, without evidence of obvious tumors or sources of bleeding. She is to see her GI team in about a week and remain on benefiber/metamucil indefinitely. She was taken via private car, home with her . - ALLERGIES Allergies/Adverse Reactions: Allergies Allergy/AdvReac Type Severity Reaction Status Date / Time No Known Drug Allergies Allergy Verified 02/14/18 23:56 - MEDICATIONS Home Medications: Ambulatory Orders Medication Instructions Recorded Confirmed Hydrochlorothiazide 25 mg PO DAILY 06/09/15 02/15/18 Metoprolol Succinate [Toprol Xl] 100 mg PO DAILY 06/09/15 02/15/18 Ascorbic Acid 500 mg PO DAILY 02/15/18 02/15/18 Aspirin 162 mg PO DAILY 02/15/18 02/15/18 Calcium Carbonate/Vitamin D3 1 each PO DAILY 02/15/18 02/15/18 [Calcium 600-Vit D3 400 Tablet] Doxylamine Succinate [Wal-Duncan] 25 mg PO QPM 02/15/18 02/15/18 Latanoprost 0.005% Ophth Drops 1 drops EACHEYE QPM 02/15/18 02/15/18 [Xalatan Ophth Drops] Potassium Chloride 20 meq PO QPM 02/15/18 02/15/18 Timolol 0.25% Ophth Drops 1 drops LEFTEYE DAILY 02/15/18 02/15/18 [Timoptic 0.25% Ophth Drops] Wheat Dextrin [Benefiber] 1 each PO DAILY #30 packet 02/16/18 - PHYSICAL EXAM AT DISCHARGE General Appearance: positive: No acute distress, Alert Eyes Bilateral: positive: Normal inspection, PERRL ENT: positive: ENT inspection nml, Pharynx nml, No signs of dehydration Neck: positive: Nml inspection, Thyroid nml, No JVD, Trachea midline Respiratory: positive: Chest non-tender, No respiratory distress, Breath sounds nml Cardiovascular: positive: Regular rate & rhythm, No gallop, Systolic murmur Peripheral Pulses: positive: 2+ Abdomen: positive: Non-tender, No organomegaly, Nml bowel sounds, Other (rounded, soft) Rectal: positive: Control positive Back: positive: Nml inspection Skin: positive: No rash, Warm, Dry Extremities: positive: Non-tender, Full ROM, Nml appearance, No pedal edema Neurologic/Psychiatric: positive: Oriented x3, CN's nml (2-12), Motor nml, Sensation nml, Mood/affect nml Reflexes: Bicep (R): 3+, Bicep (L): 3+ - LABS Result Diagrams: 02/15/18 22:48 02/15/18 05:44 - DIAGNOSTIC IMAGING Diagnostic Imaging Results: Final report reviewed Diagnostic Imaging Results Comments: EXAM: CT ABDOMEN AND PELVIS EXAM DATE: 02/15/2018 12:00 AM. IMPRESSION: Diverticulosis. No evidence of colonic mass. - FOLLOW UP Follow Up: Disposition: Home, Self Care Prescriptions: Wheat Dextrin [Benefiber] 1 each PO DAILY #30 packet Diet: Soft (low-residue, daily Benefiber or metamucil.) You were admitted overnight for GI bleeding. You underwent a EGD and colonoscopy and final results are still pending, but preliminary findings are that of diverticulosis. I have given you a copy of reading materials on this disease to keep you healthy. I have sent a prescription for benefiber to the pharmacy, but metamucil will also be ok, ALL of which are over the counter. Please see your PCP within one week. Follow up with GI as recommended. - TIME SPENT Time Spent in Discharge (Minutes): 55"
[2018-02-16] MEDS: POLYETHYLENE GLYCOL 3350 17 GM PACKET PO SCH (09:24)
[2018-02-16 10:20] VITALS: BP 128/66
[2018-02-16] MEDS ORDERED: POTASSIUM CHLORIDE 20 MEQ TABLET PO SCH (21:00)
== END 2018-02-16 10:50 | disposition home or self-care (01) ==
LOC: EDUNIT# → ED 23:51 → OBS 02-15 03:49
PROVIDERS: ADMIT Internal Medicine; ATTEND Nurse Practitioner
PROC: 0DJD8ZZ Inspection of Lower Intestinal Tract, Via Natural or Artificial Opening Endoscopic (ICD-10-PCS; principal; 2018-02-16 07:30)
PROC: 0DB68ZX Excision of Stomach, Via Natural or Artificial Opening Endoscopic, Diagnostic (ICD-10-PCS; 2018-02-16 07:30)
DX: K92.2 Gastrointestinal hemorrhage, unspecified (principal); K57.30 Diverticulosis of large intestine without perforation or abscess without bleeding; D62 Acute posthemorrhagic anemia; E87.6 Hypokalemia; I10 Essential (primary) hypertension; E78.5 Hyperlipidemia, unspecified; M19.90 Unspecified osteoarthritis, unspecified site; K64.8 Other hemorrhoids; K29.50 Unspecified chronic gastritis without bleeding; K44.9 Diaphragmatic hernia without obstruction or gangrene; Z79.82 Long term (current) use of aspirin
CPT/HCPCS: 36415; 43239; 45378; 74177; 80053; 83690; 85025; 85610; 85730; 86850; 86900; 86901; 87081; 88305; 96361; 96374; 96375; 96376; 99283; 99284; A9270; G0378; J7120; Q9967; 96360

== ENCOUNTER 2018-04-14 15:11 | Outpatient (CLI) | payer MEDICARE, OTHER ==
--- NOTE | 2018-04-15 09:36 | DEXA Report ---
Reason: OTHER SPECIFIED MENOPAUSAL Procedure Date: 04/14/2018 Accession Number: [id number] / [id number] Procedure: DEX - Dexa Spine and/or Hip CPT Code: FULL RESULT: EXAM: Dexa Spine and/or Hip DATE: 04/14/2018 3:49 PM CLINICAL HISTORY: OTHER SPECIFIED MENOPAUSAL TECHNIQUE: Dual energy x-ray absorptiometry (DXA) was performed on a [employer] System. Regions measured are the AP Spine, femoral neck, and if needed forearm. COMPARISON: None. In accordance with the International Society for Clinical Densitometry (ISCD) guidelines, data from previous exams may be reanalyzed using current recommendations and techniques. This is done to allow a more accurate basis for comparison with the current study. FINDINGS: The data for the lumbar spine is as follows: BMD (g/cm/cm) T-SCORE Z-SCORE REGION L1 1.122 -0.1 1.2 L2 1.248 0.4 1.6 L3 1.425 1.9 3.1 L4 1.419 1.8 3.1 TOTAL 1.309 1.1 2.3 NOTE: All evaluable vertebrae are used for classification The data for the hip is as follows: BMD (g/cm/cm) T-SCORE Z-SCORE REGION Neck 0.877 -1.2 0.4 TOTAL 0.932 -0.6 0.7 NOTE: The femoral neck or total proximal femur, whichever is lowest, is used for classification. IMPRESSION: THE WHO CLASSIFICATION BASED ON THE INTERNATIONAL REFERENCE STANDARD IS OSTEOPENIA. THE FRACTURE RISK IS INCREASED. RECOMMENDATION: Patients with diagnosis of osteoporosis or osteopenia should have regular bone mineral density assessment. For those eligible for Medicare, routine testing is allowed once every 2 years. Testing frequency can be increased for patients who have rapidly progressing disease or for those who are receiving medical therapy to restore bone mass. COMMENT: World Health Organization (WHO) definitions for osteoporosis and osteopenia: NORMAL BMD: T-score at -1.0 or higher, fracture risk is low OSTEOPENIA BMD: T-score between -1.0 and -2.5, fracture risk is increased. OSTEOPOROSIS BMD: T-score at -2.5 or lower, fracture risk is high. National Osteoporosis Foundation recommends: 1. Obtain adequate dietary calcium (at least 1200 mg per day) and vitamin D (400-800 international units per day). 2. Participate, as appropriate, in regular weightbearing and muscle-strengthening exercise. 3. Avoid tobacco use and reduce alcohol and caffeine intake. 4. For more detailed information see the website at www.NOF.org.
== END 2018-04-14 15:12 | disposition home or self-care (01) ==
LOC: DI 15:11
PROVIDERS: ATTEND Registered Nurse
DX: M85.88 Other specified disorders of bone density and structure, other site (principal); N95.8 Other specified menopausal and perimenopausal disorders
CPT/HCPCS: 77080

== ENCOUNTER 2018-04-14 15:13 | Outpatient (CLI) | payer MEDICARE, OTHER ==
--- NOTE | 2018-04-15 09:04 | Mammography Report ---
Reason: SCREENING MAMMO Procedure Date: 04/14/2018 Accession Number: [id number] / [id number] Procedure: RHAUL - Screening Mammo w/Melvin CPT Code: FULL RESULT: EXAM: Screening Mammo w/Melvin DATE: 04/14/2018 4:25 PM CLINICAL HISTORY: Screening encounter. History of breast biopsy bilaterally with benign results. Family history of breast cancer in an aunt at the age of 85. TECHNIQUE: Bilateral CC and MLO views were obtained. COMPARISON: 03/11/2017 through 09/14/2012. FINDINGS: The breasts demonstrate diffuse fatty replacement bilaterally. There are bilateral coarse calcifications, typically benign. Postprocedural changes are also seen, typically benign. No suspicious masses, clustered microcalcifications, or regions of architectural distortion are identified. IMPRESSION: Benign findings RECOMMENDATION: Routine annual screening unless otherwise clinically indicated. BIRADS CATEGORY 2: Benign findings STANDARD QUALIFYING STATEMENTS: 1. This examination was not reviewed with the aid of Computer-Aided Detection (CAD). 2. A negative or benign imaging report should not preclude biopsy if clinically suspicious findings are present. 3. Dense breasts may obscure an underlying neoplasm. 4. This examination was reviewed with the aid of 3D breast imaging (tomosynthesis).
== END 2018-04-14 15:14 | disposition home or self-care (01) ==
LOC: DI 15:13
PROVIDERS: ATTEND Registered Nurse
DX: Z12.31 Encounter for screening mammogram for malignant neoplasm of breast (principal); Z80.3 Family history of malignant neoplasm of breast
CPT/HCPCS: 77063; 77067

== ENCOUNTER 2021-04-18 11:09 | Outpatient (CLI) | payer MEDICARE, OTHER ==
--- NOTE | 2021-04-21 15:48 | Mammography Report ---
BILATERAL DIGITAL SCREENING MAMMOGRAM 3D/2D: 04/18/2021 CLINICAL: Routine screening. Comparison is made to exams dated: 04/14/2018 mammogram, 03/11/2017 mammogram, 01/06/2016 mammogram, 11/14/2014 mammogram, 10/10/2013 mammogram, and 09/14/2012 mammogram - [facility]. The tis fernando of both breasts is predominantly fatty. There are benign calcifications in both breasts. No significant masses, calcifications, or other findings are seen in either breast. There has been no significant interval change. IMPRESSION: BENIGN There is no mammographic evidence of malignancy. A 1 year screening mammogram is recommended. This exam was interpreted at Station ID: [id number]. NOTE: For mammograms, a report in lay terms will be sent to the patient. Approximately 15% of breast malignancies will not be visualized mammographically. In the management of a palpable breast mass, a negative mammogram must not discourage biopsy of a clinically suspicious lesion. Electronically Signed By: Chris Lainez acr/penrad:04/18/2021 17:20:03 ACR BI-RADS Category 2: Benign Finding(s) 3342F PARENCHYMAL PATTERN: (F) - The breast(s) demonstrate(s) diffuse fatty replacement. BI-RADS CATEGORY: (2) - 2 RECOMMENDATION: (ANNUAL) - Recommend routine annual screening mammography. [id number] 1 year screening LATERALITY: (B)
== END 2021-04-18 11:10 | disposition home or self-care (01) ==
LOC: DI 11:09
PROVIDERS: ATTEND Registered Nurse
DX: Z12.31 Encounter for screening mammogram for malignant neoplasm of breast (principal)

== ENCOUNTER 2021-06-10 11:04 | Outpatient (CLI) | payer MEDICARE, OTHER ==
[2021-06-10 11:49] LABS: ALBUMIN 4.1 g/dL (3.2-5.5); ALBUMIN/GLOBULIN RATIO 1.2 (1.0-2.2); ALKALINE PHOSPHATASE 69 IU/L (42-121); ALT ALANINE AMINOTRANSFERASE 26 IU/L (10-60); AST ASPARTATE AMINOTRANSFERASE 27 IU/L (10-42); BILIRUBIN,TOTAL 1.1 mg/dL (0.2-1.0); BUN - BLOOD UREA NITROGEN 19 mg/dL (6-20); CALCIUM 9.5 mg/dL (8.5-10.3); CARBON DIOXIDE - CO2 28 mmol/L (21-32); CHLORIDE 94 mmol/L (101-111); CHOL/HDL RATIO 3.4 (<4.4); CHOLESTEROL 188 mg/dL; CREATININE 0.8 mg/dL (0.4-1.0); GFR - MDRD 70 (>89); GLUCOSE 114 mg/dL (70-100); HDL CHOLESTEROL 56 mg/dL; LDL CHOLESTEROL,CALCULATED 109 mg/dL; LDL/HDL RATIO 1.9 (<4.4); POTASSIUM 3.5 mmol/L (3.5-5.0); SODIUM 132 mmol/L (135-145); TOTAL PROTEIN 7.4 g/dL (6.7-8.2); TRIGLYCERIDES 114 mg/dL; VLDL CHOLESTEROL 23 mg/dL
[2021-06-10 12:08] LABS: ESTIMATED AVERAGE GLUCOSE 128 mg/dL (70-100); HEMOGLOBIN A1c% 6.1 % (4.27-6.07)
== END 2021-06-10 11:05 | disposition home or self-care (01) ==
LOC: LAB 11:04
PROVIDERS: ATTEND Registered Nurse
DX: R73.03 Prediabetes (principal); E78.2 Mixed hyperlipidemia
CPT/HCPCS: 36415; 80053; 80061; 83036; 83721

== ENCOUNTER 2022-06-10 09:46 | Outpatient (CLI) | payer MEDICARE, OTHER ==
[2022-06-10 10:26] LABS: ALBUMIN 4.2 g/dL (3.2-5.5); ALBUMIN/GLOBULIN RATIO 1.2 (1.0-2.2); ALKALINE PHOSPHATASE 83 IU/L (42-121); ALT ALANINE AMINOTRANSFERASE 22 IU/L (10-60); AST ASPARTATE AMINOTRANSFERASE 22 IU/L (10-42); BILIRUBIN,TOTAL 0.7 mg/dL (0.2-1.0); BUN - BLOOD UREA NITROGEN 22 mg/dL (6-20); CALCIUM 9.8 mg/dL (8.5-10.3); CARBON DIOXIDE - CO2 27 mmol/L (21-32); CHLORIDE 104 mmol/L (101-111); CHOL/HDL RATIO 3.3 (<4.4); CHOLESTEROL 191 mg/dL; CK- CREATINE KINASE 52 IU/L (22-269); CREATININE 0.7 mg/dL (0.4-1.0); GFR - MDRD 81 (>89); GLUCOSE 104 mg/dL (70-100); HDL CHOLESTEROL 58 mg/dL; LDL CHOLESTEROL,CALCULATED 110 mg/dL; LDL/HDL RATIO 1.9 (<4.4); POTASSIUM 4.4 mmol/L (3.5-5.0); SODIUM 140 mmol/L (135-145); TOTAL PROTEIN 7.8 g/dL (6.7-8.2); TRIGLYCERIDES 115 mg/dL; VLDL CHOLESTEROL 23 mg/dL
[2022-06-10 10:45] LABS: ESTIMATED AVERAGE GLUCOSE 134 mg/dL (70-100); HEMOGLOBIN A1c% 6.3 % (4.27-6.07)
[2022-06-10 15:37] LABS: BILIRUBIN,URINE NEGATIVE (NEGATIVE); CLARITY,URINE CLEAR (CLEAR); GLUCOSE, URINE (UA) NEGATIVE (NEGATIVE); KETONES,URINE (UA) NEGATIVE (NEGATIVE); LEUKOCYTE ESTERASE, URINE SMALL (NEGATIVE); NITRITE,URINE NEGATIVE (NEGATIVE); OCCULT BLOOD,URINE NEGATIVE (NEGATIVE); PH,URINE 5.5 PH (5.0-7.5); PROTEIN,URINE NEGATIVE (NEGATIVE); UROBILINOGEN,URINE 0.2 (NORMAL) E.U./dL (NORMAL)
[2022-06-10 15:48] LABS: BACTERIA,URINE Few /HPF (None Seen); RBC,URINE 0-5 /HPF (0-5); SQUAMOUS EPITHELIAL CELL,UR MOD Squamous (<= Few); WBC,URINE 0-3 /HPF (0-5)
[2022-06-12 09:20] LABS: BASOPHILS # (AUTO) 0.1 10^3/uL (0.0-0.1); BASOPHILS % (AUTO) 1.2 %; EOSINOPHILS # (AUTO) 0.2 10^3/uL (0.0-0.7); EOSINOPHILS % (AUTO) 3.8 %; HCT - HEMATOCRIT 47.8 % (37.0-47.0); HGB - HEMOGLOBIN 15.4 g/dL (12.0-16.0); LYMPHOCYTES # (AUTO) 1.4 10^3/uL (1.5-3.5); LYMPHOCYTES % (AUTO) 23.1 %; MEAN CORPUSCULAR HEMOGLOBIN 28.5 pg (27.0-31.0); MEAN CORPUSCULAR HGB CONC 32.2 g/dL (32.0-36.0); MEAN CORPUSCULAR VOLUME 88.4 fL (81.0-99.0); MEAN PLATELET VOLUME 10.3 fL (7.9-10.8); MONOCYTES # (AUTO) 0.3 10^3/uL (0.0-1.0); NEUTROPHILS % (AUTO) 66.2 %; PLT - PLATELET COUNT 271 10^3/uL (130-450); RED BLOOD COUNT 5.41 10^6/uL (4.20-5.40); RED CELL DISTRIBUTION WIDTH 14.1 % (12.0-15.0); WHITE BLOOD COUNT 6.1 x10^3/uL (4.8-10.8)
== END 2022-06-10 09:47 | disposition home or self-care (01) ==
LOC: LAB 09:46
PROVIDERS: ATTEND Internal Medicine
DX: Z00.00 Encounter for general adult medical examination without abnormal findings (principal); U07.1 COVID-19; R60.9 Edema, unspecified; K92.2 Gastrointestinal hemorrhage, unspecified; H40.9 Unspecified glaucoma; I10 Essential (primary) hypertension; R73.03 Prediabetes; Z79.899 Other long term (current) drug therapy; N39.41 Urge incontinence
CPT/HCPCS: 36415; 80053; 80061; 81001; 82550; 83036; 83721; 83880; 84443; 85025; 87086

== ENCOUNTER 2022-07-07 09:41 | Outpatient (CLI) | payer MEDICARE ==
[2022-07-07 10:04] LABS: BASOPHILS % (AUTO) 0.6 %; EOSINOPHILS # (AUTO) 0.2 10^3/uL (0.0-0.7); EOSINOPHILS % (AUTO) 2.6 %; HCT - HEMATOCRIT 46.7 % (37.0-47.0); HGB - HEMOGLOBIN 15.2 g/dL (12.0-16.0); LYMPHOCYTES # (AUTO) 1.6 10^3/uL (1.5-3.5); LYMPHOCYTES % (AUTO) 23.7 %; MEAN CORPUSCULAR HEMOGLOBIN 28.8 pg (27.0-31.0); MEAN CORPUSCULAR HGB CONC 32.5 g/dL (32.0-36.0); MEAN CORPUSCULAR VOLUME 88.4 fL (81.0-99.0); MEAN PLATELET VOLUME 9.3 fL (7.9-10.8); MONOCYTES # (AUTO) 0.4 10^3/uL (0.0-1.0); NEUTROPHILS # (AUTO) 4.6 10^3/uL (1.5-6.6); NEUTROPHILS % (AUTO) 66.8 %; PLT - PLATELET COUNT 273 10^3/uL (130-450); RED BLOOD COUNT 5.28 10^6/uL (4.20-5.40); RED CELL DISTRIBUTION WIDTH 13.7 % (12.0-15.0); WHITE BLOOD COUNT 6.8 x10^3/uL (4.8-10.8)
[2022-07-07 10:12] LABS: CALCIUM 9.5 mg/dL (8.5-10.3); CREATININE 0.9 mg/dL (0.4-1.0); POTASSIUM 4.6 mmol/L (3.5-5.0)
[2022-07-07 10:28] LABS: BILIRUBIN,URINE NEGATIVE (NEGATIVE); GLUCOSE, URINE (UA) NEGATIVE (NEGATIVE); KETONES,URINE (UA) NEGATIVE (NEGATIVE); LEUKOCYTE ESTERASE, URINE NEGATIVE (NEGATIVE); NITRITE,URINE NEGATIVE (NEGATIVE); OCCULT BLOOD,URINE TRACE-INTA (NEGATIVE); PROTEIN,URINE NEGATIVE (NEGATIVE); UROBILINOGEN,URINE 0.2 (NORMAL) E.U./dL (NORMAL)
[2022-07-07 10:47] LABS: BACTERIA,URINE Rare /HPF (None Seen); CLARITY,URINE CLEAR (CLEAR); RBC,URINE 0-5 /HPF (0-5); SQUAMOUS EPITHELIAL CELL,UR NONE SEEN (<= Few); WBC,URINE 0-3 /HPF (0-5)
[2022-07-07 13:47] LABS: ESTIMATED AVERAGE GLUCOSE 126 mg/dL (70-100)
== END 2022-07-07 09:42 | disposition home or self-care (01) ==
LOC: LAB 09:41
PROVIDERS: ATTEND Orthopaedic Surgery
DX: Z01.818 Encounter for other preprocedural examination (principal); R73.9 Hyperglycemia, unspecified; N39.0 Urinary tract infection, site not specified
CPT/HCPCS: 36415; 80048; 81001; 83036; 85025; 87086; 93005

== ENCOUNTER 2023-06-14 10:56 | Outpatient (CLI) | payer MEDICARE ==
[2023-06-14 11:11] LABS: BASOPHILS # (AUTO) 0.1 10^3/uL (0.0-0.1); EOSINOPHILS # (AUTO) 0.2 10^3/uL (0.0-0.7); EOSINOPHILS % (AUTO) 3.4 %; HCT - HEMATOCRIT 46.9 % (37.0-47.0); HGB - HEMOGLOBIN 14.9 g/dL (12.0-16.0); LYMPHOCYTES # (AUTO) 1.8 10^3/uL (1.5-3.5); LYMPHOCYTES % (AUTO) 29.5 %; MEAN CORPUSCULAR HEMOGLOBIN 28.1 pg (27.0-31.0); MEAN CORPUSCULAR HGB CONC 31.8 g/dL (32.0-36.0); MEAN CORPUSCULAR VOLUME 88.3 fL (81.0-99.0); MEAN PLATELET VOLUME 9.1 fL (7.9-10.8); MONOCYTES # (AUTO) 0.4 10^3/uL (0.0-1.0); MONOCYTES % (AUTO) 5.9 %; NEUTROPHILS # (AUTO) 3.6 10^3/uL (1.5-6.6); NEUTROPHILS % (AUTO) 59.9 %; PLT - PLATELET COUNT 259 10^3/uL (130-450); RED BLOOD COUNT 5.31 10^6/uL (4.20-5.40)
[2023-06-14 11:27] LABS: ALBUMIN 4.3 g/dL (3.2-5.5); ALBUMIN/GLOBULIN RATIO 1.3 (1.0-2.2); ALKALINE PHOSPHATASE 90 IU/L (42-121); ALT ALANINE AMINOTRANSFERASE 18 IU/L (10-60); AST ASPARTATE AMINOTRANSFERASE 19 IU/L (10-42); BILIRUBIN,TOTAL 0.7 mg/dL (0.2-1.0); BUN - BLOOD UREA NITROGEN 24 mg/dL (6-20); CALCIUM 10.4 mg/dL (8.5-10.3); CARBON DIOXIDE - CO2 32 mmol/L (21-32); CHLORIDE 101 mmol/L (101-111); CHOL/HDL RATIO 3.4 (<4.4); CHOLESTEROL 195 mg/dL; GFR - MDRD 53 (>89); GLUCOSE 103 mg/dL (74-104); HDL CHOLESTEROL 58 mg/dL; LDL CHOLESTEROL,CALCULATED 97 mg/dL; LDL/HDL RATIO 1.7 (<4.4); SODIUM 139 mmol/L (135-145); TOTAL PROTEIN 7.5 g/dL (6.4-8.9); TRIGLYCERIDES 200 mg/dL (48-352); VLDL CHOLESTEROL 40 mg/dL
[2023-06-14 11:39] LABS: THYROID STIMULATING HORMONE 1.56 uIU/mL (0.34-5.60)
[2023-06-14 12:51] LABS: ESTIMATED AVERAGE GLUCOSE 128 mg/dL (70-100); HEMOGLOBIN A1c% 6.1 % (4.27-6.07)
== END 2023-06-14 10:57 | disposition home or self-care (01) ==
LOC: LAB 10:56
PROVIDERS: ATTEND Internal Medicine
DX: Z00.00 Encounter for general adult medical examination without abnormal findings (principal); R60.9 Edema, unspecified; I10 Essential (primary) hypertension; N32.81 Overactive bladder; Z86.16 Personal history of COVID-19; R73.03 Prediabetes; Z79.899 Other long term (current) drug therapy; R63.5 Abnormal weight gain
CPT/HCPCS: 36415; 80053; 80061; 83036; 83721; 83880; 84443; 85025

== ENCOUNTER 2023-06-29 09:12 | Outpatient (CLI) | payer MEDICARE, OTHER ==
--- NOTE | 2023-06-30 11:15 | Mammography Report ---
BILATERAL DIGITAL SCREENING MAMMOGRAM 3D/2D: 06/29/2023 CLINICAL: Routine screening. Comparison is made to exams dated: 04/18/2021 mammogram, 04/14/2018 mammogram, and 03/11/2017 mammogram - [facility]. Both breasts are almost entirely fatty (category a/<25% glandular tissue). There are benign calcifications in both breasts. No significant masses, calcifications, or other findings are seen in either breast. There has been no significant interval change. IMPRESSION: BENIGN There is no mammographic evidence of malignancy. A 1 year screening mammogram is recommended. Based on the Tyrer Cuzick model (a risk assessment model) the patient's lifetime risk is 2.9% and her 10 year risk is 0.0%. According to the ACR, ACS, and NCCN guidelines, an annual breast MRI exam louise g with mammogram is recommended if the patient's lifetime risk is 20% or greater. This exam was interpreted at Station ID: [id number]. NOTE: For mammograms, a report in lay terms will be sent to the patient. Approximately 15% of breast malignancies will not be visualized mammographically. In the management of a palpable breast mass, a negative mammogram must not discourage biopsy of a clinically suspicious lesion. Electronically Signed By: Elmer chappell/selina:06/29/2023 15:53:10 letter sent: No_Letter ACR BI-RADS Category 2: Benign Finding(s) 3342F PARENCHYMAL PATTERN: (F) - The breast(s) demonstrate(s) diffuse fatty replacement. BI-RADS CATEGORY: (2) - 2 RECOMMENDATION: (ANNUAL) - Recommend routine annual screening mammography. [id number] 1 year screening LATERALITY: (B)
== END 2023-06-29 09:13 | disposition home or self-care (01) ==
LOC: DI 09:12
PROVIDERS: ATTEND Internal Medicine
DX: Z12.31 Encounter for screening mammogram for malignant neoplasm of breast (principal)